=== PATIENT | male | born 1955 | race Caucasian/White ===

== ENCOUNTER 2018-08-04 09:51 | Emergency (ER) | payer BC ==
[2018-08-04] MEDS ORDERED: Sodium Chloride 0.9% 10 ML Syringe FLUSH PRN (09:55)
[2018-08-04] MEDS ORDERED: Aspirin 81 MG Tab.Chew PO ONE (09:55)
[2018-08-04] MEDS: Nitroglycerin 0.4 MG Tab.SL SL PRN ×3 (10:09→10:38)
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
[2018-08-04] MEDS ORDERED: Nitroglycerin 2% Oint 1 GM UD Packet TOP ONE (10:34)
[2018-08-04 10:41] LABS: ANION GAP 14.9; CHLORIDE,CL 98 mmol/L (101-111); SODIUM,NA 137 mmol/L (135-145)
[2018-08-04 10:49] VITALS: BP 122/71
[2018-08-04] MEDS ORDERED: Morphine 2 MG/ML Syringe IVPUSH ONE (10:52)
[2018-08-04] MEDS ORDERED: Nitroglycerin/D5W 25 MG/250 ML BOTTLE ONE (10:53)
[2018-08-04] MEDS ORDERED: Heparin Sodium 5,000 Units/ML Vial IVPUSH ONE (10:54)
[2018-08-04] MEDS ORDERED: Ondansetron 4 MG/2 ML SDV IV ONE (10:57)
[2018-08-04] MEDS ORDERED: Nitroglycerin/D5W 25 MG/250 ML BOTTLE IV SCH (11:00)
[2018-08-04] MEDS ORDERED: Heparin Sodium/0.45% NaCl 25,000 UNITS/500 ML BAG IV SCH (11:00)
[2018-08-04] MEDS ORDERED: Tenecteplase 50 MG Kit IV ONE (11:16)
[2018-08-04] MEDS ORDERED: Morphine 4 MG/ML Syringe IVPUSH ONE (11:23)
== END 2018-08-04 12:11 ==
LOC: DL.ED 09:51
DX: I21.3 ST elevation (STEMI) myocardial infarction of unspecified site (principal); E66.9 Obesity, unspecified; E11.9 Type 2 diabetes mellitus without complications; Z91.09 Other allergy status, other than to drugs and biological substances; Z79.82 Long term (current) use of aspirin; Z79.899 Other long term (current) drug therapy
CPT/HCPCS: 36415; 71045; 80053; 82962; 83690; 84484; 85025; 85730; 93005; 96365; 96375; 99285; A9270; J1644; J2270; J2405; J3101; J3490

== ENCOUNTER → 2018-12-07 | Outpatient (CLI) | payer BC ==
[~2018-12-07] MED LIST: Iopamidol 612 MG/ML 50 ML SDV IVPUSH ONE
== END ==
LOC: DL.CT 14:10
PROVIDERS: ATTEND Internal Medicine
DX: R51 Headache (principal); J32.8 Other chronic sinusitis
CPT/HCPCS: 70450

== ENCOUNTER 2023-05-22 13:06 | Emergency (ER) | payer MEDICARE, BC | END 2023-05-22 15:38 | disposition left against medical advice (07) | LOC: DL.ED 13:06 | DX: Z53.21 Procedure and treatment not carried out due to patient leaving prior to being seen by health care provider (principal) ==